=== PATIENT | female | born 1985 | race Caucasian/White ===

== ENCOUNTER 2018-01-05 11:59 | Emergency (ER) | payer OTHER ==
[~2018-01-05] VITALS: Ht 144.8 cm; Wt 72.6 kg
[2018-01-05 12:03] VITALS: BP 146/90
== END 2018-01-05 13:59 | disposition home or self-care (01) ==
LOC: ER 11:59
DX: G89.18 Other acute postprocedural pain (principal); R68.84 Jaw pain; I10 Essential (primary) hypertension; Z88.5 Allergy status to narcotic agent; Z88.6 Allergy status to analgesic agent; Z88.8 Allergy status to other drugs, medicaments and biological substances